=== PATIENT | female | born 1990 | race Caucasian/White ===

== ENCOUNTER 2016-08-05 04:27 | Outpatient (CLI) | payer OTHER, MEDICAID ==
[~2016-08-05] VITALS: Ht 160 cm; Wt 80.3 kg
[~2016-08-05 04:27] MED LIST: CIPRO 500MG TA500 MG PO; IRON TABLETS325 MG PO; KEFLEX 500MG.500 MG PO; PRENATAL VITAM1 EAC2 PO; RANITIDINE HCL150 MG PO
[2016-08-05 04:40] VITALS: BP 142/85
[2016-08-05] MEDS ORDERED: ROBITUSSIN10 ML/UDC PO (04:49)
[2016-08-05 04:57] LABS: URINE BILIRUBIN - DIPSTICK NEGATIVE (NEG); URINE BLOOD NEGATIVE (NEG)
== END 2016-08-05 05:51 | disposition home or self-care (01) ==
LOC: OB 04:27 → OBOUT 04:27 → OB 04:30 → OBOUT 05:51
PROVIDERS: Obstetrics & Gynecology
DX: O21.9 Vomiting of pregnancy, unspecified (principal); Z3A.38 38 weeks gestation of pregnancy; R05 Cough

== ENCOUNTER 2016-08-07 09:33 | Inpatient (IN) | payer OTHER, MEDICAID ==
[~2016-08-07] VITALS: Ht 160 cm; Wt 77.1 kg
[~2016-08-07 09:33] MED LIST changes: +ROBITUSSIN10 ML/UDC PO
--- NOTE | 2016-08-07 10:11 | LABOR NOTE ---
Laboring Subjective Subjective Date 08/07/16 Time 1009 Subjective: Pt is having regular contractions Laboring Objective Objective NST: Reactive Contractions: q 2-3 minutes Cervical dilation: 4-5 Effacement: 90% Station: -1 Membranes are: Spontaneously Ruptured (with clear fluid) Fetus monitoring? Yes Type: External Laboring Assessment Assessment Progressing? Yes Cephalopelvic disproportion? No Problem List: 1. Delivery normal Laboring Plan Plan Anethesia for epidural? Yes Continue to labor down? Yes Plan for ? No Continue to monitor? Yes Start pushing? No at 1010
[2016-08-07 10:12] VITALS: BP 146/84
[2016-08-07] MEDS ORDERED: TYLENOL WITH CO1 TA1 PO (10:15)
[2016-08-07 10:26] LABS: HEMOGLOBIN 11.5 g/dL (12.2-16.2); LYMPH # 2.2 K/mm3 (0.7-4.5); LYMPH % 14.4 % (10-50.0)
[2016-08-07 10:49] LABS: NEUTROPHILS 76 % (42-76)
[2016-08-07 11:20] LABS: ABO BLOOD TYPE O; RH BLOOD TYPE POSITIVE
[2016-08-07 12:01] LABS: URINE BLOOD 3+ (NEG)
[2016-08-07 12:10] LABS: URINE BILIRUBIN - DIPSTICK NEGATIVE (NEG)
[2016-08-07 12:13] LABS: URINE RENAL CELLS OCC #/HPF
--- NOTE | 2016-08-07 13:38 | LABOR NOTE ---
Laboring Subjective Subjective Date 08/07/16 Time 1337 Subjective: Pt is having regular contractions Laboring Objective Objective NST: Reactive Contractions: q 2-3 minutes Cervical dilation: 9 Effacement: 100% Station: 0 Membranes are: Spontaneously Ruptured Fetus monitoring? Yes Type: Internal Comment: CLIP AND IUPC INSERTED Laboring Assessment Assessment Progressing? Yes Cephalopelvic disproportion? No Problem List: 1. Delivery normal Laboring Plan Plan Anethesia for epidural? Yes Continue to labor down? Yes Plan for ? No Continue to monitor? Yes Start pushing? No at 1339
--- NOTE | 2016-08-07 15:40 | Delivery Note ---
Delivery note Delivery date: 08/07/16 Delivery time: 1523 Anesthesia: Epidural, Lavon Butterfield Was labor medically induced? No Gestational age in weeks: 39 weeks Days: 1 day Delivery prior to 39 weeks? No Sex: male score at one minute: 8 at 5 minutes: 9 Type of suction: bulb (clear fluid) AF: Clear fluid LAC or MLE: LAC (none) Delivery procedure: Normal Delivery Delivery of placenta: spontaneous Clinical note She is a 26-year-old 2 para 1 who is 39 and 1 weeks gestational age. She came in in active labor with ruptured membranes. She was found to be 4-5 cm dilated. Under labor epidural she progressed to full dilation and delivered spontaneously a liveborn male child at 3:23 PM in the afternoon of August 07, 2015. The baby was a liveborn male child with Apgars of 8 at 1 minute and 9 at 5 minutes. On delivery the head it was noted that there was a tight nuchal cord. This was doubly clamped and cut. The anterior shoulder and the rest of the 's body then delivered atraumatically. The nasopharynx and oropharynx were bulb suctioned. The baby cried spontaneously. The baby was then placed on the mother' s abdomen for further care. The nurses assigned Apgars of 8 at 1 minute and 9 at 5 minutes. We then obtained cord blood as well as cord pH. PH is currently pending. Using gentle traction on the cord and countertraction on the fundus I was able to easily deliver the placenta intact. It had a normal three-vessel cord. There were no perineal or vaginal lacerations. She has O positive blood, she is rubella immune and was group B streptococcus negative. She plans to breast-feed. Her professor of industrial technology is Dr. Patiño. Estimated blood loss was approximately 400 mL. at 1964
[2016-08-08 07:16] LABS: HEMOGLOBIN 10.4 g/dL (12.2-16.2)
[2016-08-08 08:00] VITALS: BP 123/70
--- NOTE | 2016-08-08 08:25 | ACUTE CARE PROGRESS NOTE (QUA) ---
Progress Notes Subjective Date 08/08/16 Time 0824 Note She is doing very well this morning. She is eating and drinking and ambulating. She is bottlefeeding. Her lochia is normal. She denies any pain. Patient/family reports: feeling better, no complaints Objective Findings Last VS-Temp:98.2 B/P:123/70 Pulse:82 Resp:18 SaO2: Last weight lbs:170 oz:0 K.112 Method:Stated Laboratory Tests 08/08/16 0625: Hgb 10.4 L, Hct 29.2 L 08/07/16 1530: Cord Blood pH 7.31 L 08/07/16 1130: Urine Color DK YELLOW, Urine Appearance CLOUDY, Urine pH 7.0, Ur Specific [place] 1.015, Urine Protein 1+ H, Urine Ketones NEGATIVE, Urine Blood 3+ H, Urine Nitrate NEGATIVE, Urine Bilirubin NEGATIVE, Urine Urobilinogen 4.0, Ur Leukocyte Esterase NEGATIVE, Urine RBC 10-20, Urine WBC 10-20, Urine Renal Cells OCC, Amorphous Sediment 1+, Urine Bacteria 3+, WBC Casts OCC, Urine Glucose NEGATIVE 08/07/16 1000: MCH 33.1 H 08/07/16 1000: WBC 15.5 H, RBC 3.46 L, Hgb 11.5 L, Hct 31.2 L, MCV 90.1, RDW 14.3, Plt Count 220, MPV 10.0, Gran % 79.7, Gran # 12.3 H, Total Counted 100, Lymphocytes % 14.4, Monocytes % 3.3, Eosinophils % 2.4, Basophils % 0.3, Neutrophils 76, Lymphocytes (Manual) 16, Lymphocytes # 2.2, Monocytes (Manual) 6, Monocytes # 0.5, Eosinophils # 0.4, Eosinophils # (Manual) 2, Basophils # 0.1, Differential Comment FEW LARGE PLATELETS NOTED, Platelet Estimate NORMAL, Yong Cells 1+, PUBS MCHC 36.7 H, Antibody Screen NEGATIVE, Miscellaneous Test POSITIVE 08/07/16 0945: Membrane Rupture POSITIVE- RUPTURED Microbiology 08/07 1130 URINE,FO: Urine Culture - RES Exam General appearance: normal appearance, alert, awake, no acute distress Reviewed: vital signs, lab results Assessment/Plan Problem List 1. Delivery normal Patient condition Improving, Stable Plan: continue current care This inpt stay is expected to cross 2 MNs from start of care Yes Comments: She is doing very well and we will plan to send her home tomorrow. at 1909
[2016-08-08 19:50] VITALS: BP 136/92
--- NOTE | 2016-08-09 07:44 | ACUTE CARE PROGRESS NOTE (QUA) ---
Progress Notes Subjective Date 08/09/16 Time 0742 Note She continues to do very well. She is eating and drinking and ambulating. She is bottlefeeding. Her lochia is normal. Patient/family reports: feeling better, no complaints Objective Findings Last VS-Temp:98.3 B/P:136/92 Pulse:83 Resp:18 SaO2: Last weight lbs:170 oz:0 K.112 Method:Stated Exam General appearance: normal appearance, alert, awake, no acute distress Reviewed: vital signs, lab results Assessment/Plan Problem List 1. Delivery normal Patient condition Improving, Stable Plan: continue current care, initiate discharge plan This inpt stay is expected to cross 2 MNs from start of care Yes Comments: She is doing very well this morning we'll plan to send her home. at 0743
[2016-08-09] MEDS ORDERED: MOTRIN 400MG.400 MG PO (07:47)
--- NOTE | 2016-08-09 07:47 | Discharge Summary ---
Discharge Summary Admission date: 08/07/16 Discharge date: 08/09/16 Discharge diagnoses: Term , spontaneous vaginal delivery Clinical note: She is a 26-year-old 2 now para 2 who was 39 weeks gestational age. She came in in active labor and was found be 4-5 cm dilated. As result of that she was admitted for delivery. Course in hospital: She had ruptured her membranes at home and under labor epidural progressed to full dilation. She delivered spontaneously a liveborn male child at 3:23 PM in the afternoon of August 07, 2016. The baby weighed 6 lbs. 12 oz. and was 19-1/2 inches long. He had Apgars of 8 at 1 minute and 9 at 5 minutes. There were no vaginal lacerations. She has done well and has remained afebrile throughout her hospitalization. She is eating and drinking and ambulating. She is bottlefeeding. Her hog cooler is Dr. Patiño. She has O positive blood, she is rubella immune and was group B streptococcus negative. Laboratory Tests 08/08/16 0625: Hgb 10.4 L, Hct 29.2 L 08/07/16 1530: Cord Blood pH 7.31 L 08/07/16 1130: Urine Color DK YELLOW, Urine Appearance CLOUDY, Urine pH 7.0, Ur Specific [place] 1.015, Urine Protein 1+ H, Urine Ketones NEGATIVE, Urine Blood 3+ H, Urine Nitrate NEGATIVE, Urine Bilirubin NEGATIVE, Urine Urobilinogen 4.0, Ur Leukocyte Esterase NEGATIVE, Urine RBC 10-20, Urine WBC 10-20, Urine Renal Cells OCC, Amorphous Sediment 1+, Urine Bacteria 3+, WBC Casts OCC, Urine Glucose NEGATIVE 08/07/16 1000: MCH 33.1 H 08/07/16 1000: WBC 15.5 H, RBC 3.46 L, Hgb 11.5 L, Hct 31.2 L, MCV 90.1, RDW 14.3, Plt Count 220, MPV 10.0, Gran % 79.7, Gran # 12.3 H, Total Counted 100, Lymphocytes % 14.4, Monocytes % 3.3, Eosinophils % 2.4, Basophils % 0.3, Neutrophils 76, Lymphocytes (Manual) 16, Lymphocytes # 2.2, Monocytes (Manual) 6, Monocytes # 0.5, Eosinophils # 0.4, Eosinophils # (Manual) 2, Basophils # 0.1, Differential Comment FEW LARGE PLATELETS NOTED, Platelet Estimate NORMAL, Yong Cells 1+, PUBS MCHC 36.7 H, Antibody Screen NEGATIVE, Miscellaneous Test POSITIVE 08/07/16 0945: Membrane Rupture POSITIVE- RUPTURED Microbiology Date/Time Procedure - Status Source Growth 08/07 1130 Urine Culture - COMP URINE,FO Plans for ongoing care: She is discharged home to follow-up with me in approximately 2 weeks' time. Discharge medications She will continue with her vitamins and iron. She was given a pressure for for Percocet 5/325, 30 tablets as well as Motrin 400 mg, 40 tablets DC/follow-up instructions She was given the usual instructions with respect to limiting her activity, driving and sexual activity. Condition at discharge Stable and improved at 0746
[2016-08-09] MEDS ORDERED: PERCOCET 5/3251 EACH PO (07:48)
[2016-08-09] MEDS ORDERED: NICOTINE T21 MG/24 H TD (07:48)
[2016-08-09 08:39] VITALS: BP 131/98
== END 2016-08-09 13:00 | disposition home or self-care (01) | DRG 775 ==
LOC: OBOUT 09:33 → OB 09:34 → OBOUT 11:36 → OB 11:38
PROVIDERS: Nurse Practitioner Obstetrics & Gynecology
PROC: 10E0XZZ Delivery of Products of Conception, External Approach (ICD-10-PCS; principal; 2016-08-07)
DX: O69.81X0 Labor and delivery complicated by cord around neck, without compression, not applicable or unspecified (principal); Z37.0 Single live birth; Z3A.39 39 weeks gestation of pregnancy
CPT/HCPCS: C1758; J0595

== ENCOUNTER 2016-08-10 19:10 | Inpatient (IN) | payer OTHER, MEDICAID ==
[~2016-08-10] VITALS: Ht 160 cm; Wt 72.6 kg
[2016-08-10 00:22] VITALS: BP 146/96
[~2016-08-10 19:10] MED LIST changes: +MOTRIN 400MG.400 MG PO; +NICOTINE T21 MG/24 H TD; +PERCOCET 5/3251 EACH PO; +TYLENOL WITH CO1 TA1 PO
[2016-08-10 19:15] VITALS: BP 160/108
[2016-08-10 19:30] LABS: LYMPH # 2.5 K/mm3 (0.7-4.5); LYMPH % 21.3 % (10-50.0)
[2016-08-10 19:36] LABS: URINE BILIRUBIN - DIPSTICK NEGATIVE (NEG); URINE BLOOD 3+ (NEG)
[2016-08-10 19:37] LABS: HEMOGLOBIN 10.4 g/dL (12.2-16.2)
--- NOTE | 2016-08-10 19:44 | Emergency Room Report ---
See Addendum History of Present Illness Time Seen by 1925 Presenting Problem in Triage Pt arrived:Walked Presenting Problem:PT STATES THAT HER B/P WAS HIGH. PT STATES THAT SHE HAD A VAGINAL DELIVERY 3 DAYS AGO. 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 N Clinical Suspician of Infection? N Mental Status: 1 - Regular (Normal Baseline) Sepsis Risk:Low Sepsis Risk Have you (or family members/close friends) recently traveled outside the [place]? N If Yes, where/when: Have you had exposure to infectious disease within the past month? N TB? Other? Specify: Patient took BP at home and noted it to be high; has no headache or visual changes today; s/p three days ago with no BP issues during ; states recently has been taking cough syrup with decongestant, last dose yesterday; drank two Mountain Dew drinks today, but drinks caffeine daily. No hx HTN. ALLERGIES Coded Allergies: No Known Drug Intolerances (NA 08/10/16) Home Medications Active Scripts Ibuprofen (MOTRIN 400MG) 400 MG PO Q8HP PRN MILD PAIN, FEVER OR HEADACHE #40 TAB Prov: 08/09/16 Oxycodone 5MG/[id number] (Oxycodone-Acetaminophen 5-325) 1-2 TAB PO Q4HP PRN MODERATE TO SEVERE PAIN #30 TAB Prov: 08/09/16 Reported Medications Ranitidine Hcl (Ranitidine 150MG) 150 MG PO BID Discontinued Reported Medications ACETAMINOPHEN WITH CODEINE (Tylenol With Codeine #3 Tablet) 1 TAB PO Q4HP PRN PAIN History Medical History General Angina: No [place]: No Hypertension? No Hyperlipidemia? No CHF? No COPD? No Asthma? No CVA? No Seizures? No Diabetes? No GB Disease: No MRSA? No TB? No Cancer? 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 Psychiatric/Neurological see HPI, denies headache Physical Exam Vital Signs Vital Signs Date Time Temp Pulse Resp B/P Pulse O2 O2 Flow FiO2 Ox Delivery Rate 08/10 1953 87 18 176/112 98 08/10 1914 98.9 92 18 160/108 96 General Appearance normal appearance, WD/WN, no apparent distress (SBP in 170's on recheck) Eye Exam - bilateral eye normal exam, bilateral eye PERRL, bilateral eye EOMI Neck normal inspection, non-tender, supple, full range of motion Respiratory Status Yes: trachea midline, chest symmetrical, non tender chest. No: respiratory distress, tender on palpation, use of accessory muscles, pain on inspiration, pain on expiration, productive cough, non productive cough. Lung Sounds bilateral: normal breath sounds, lungs clear. 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 No Results/Orders Laboratory Tests 08/10/161924: Urine Color YELLOW, Urine Appearance CLEAR, Urine pH 7.0, Ur Specific [place] 1.010, Urine Protein TRACE H, Urine Ketones NEGATIVE, Urine Blood 3+ H, Urine Nitrate NEGATIVE, Urine Bilirubin NEGATIVE, Urine Urobilinogen 0.2, Ur Leukocyte Esterase 2+ H, Urine RBC 5-10, Urine WBC 3-5, Ur Squamous Epith Cells 5-10, Amorphous Sediment 1+, Urine Bacteria 2+, Urine Glucose NEGATIVE 08/10/161919: Lactate Dehydrogenase 272 H 08/10/161919: Sodium 141, Potassium 3.3 L, Chloride 107, Carbon Dioxide 25, BUN 5 L, Creatinine 0.7, Estimated Creat Clear 142, Estimated GFR (MDRD) 103, Glucose 101 , Calcium 8.4 L, Total Bilirubin 0.2, AST 32, ALT 23, Alkaline Phosphatase 217 H, Total Protein 5.7 L, Albumin 2.3 L, Globulin 3.4 H, Albumin/Globulin Ratio 0.7 L, PT 9.7, INR 0.91, APTT 28.6, WBC 11.6 H, RBC 3.28 L, Hgb 10.4 L, Hct 29.9 L, MCV 91.0, RDW 13.7, Plt Count 316, MPV 10.1, Gran % 71.8, Gran # 8.4 H , Lymphocytes % 21.3, Monocytes % 3.0, Eosinophils % 3.5, Basophils % 0.3, Lymphocytes # 2.5, Monocytes # 0.4, Eosinophils # 0.4, Basophils # 0.0, PUBS MCHC 34.8, MCH 31.7 H Current Medication Orders Sig/Shari Start time Last Medication Dose Route Stop Time Status Admin Magnesium Sulfate 50 ML ONCE ONE 08/10 2014 AC IV 08/10 2213 Clonidine HCl 0 .STK-MED ONE 08/10 1948 DC .ROUTE Clonidine HCl 0.1 MG ONCE ONE 08/10 1944 DC 08/10 PO 08/10 1945 1950 Sodium Chloride 10 ML PRN PRN 08/10 1929 AC IV 08/11 1920 Orders Procedure Date/time Status Decision to admit 08/10 2001 Active IV SALINE LOCK 08/10 1929 Active PARTIAL THROMBOPLASTIN TIME 08/10 1929 Complete PROTHROMBIN TIME 08/10 1929 Complete LDH 08/10 1929 Complete CULTURE, URINE 08/10 1924 Active IV SALINE LOCK 08/10 1920 Active URINALYSIS/COMPLETE 08/10 1920 Complete CBC WITH AUTO DIFF 08/10 1920 Complete CHEM 12 PROFILE 08/10 1920 Complete Consult MD Physician Consult Time Called 2002 Reason Pt. Condition, Admission Departure Departure Time of Disposition 2002 Disposition Still a Patient Clinical Impression Primary Impression: Hypertension, condition or complication Condition STABLE Referrals Kate Roberts APRN (Family) ED Critical Care Critical Care Yes Time spent < 30 min Vital system(s) involved: Circulatory Failure (elevated BP post ) I was present at bedside for Coordinating pt's care, Reviewing lab results, Discussing pt condition, For re-examinations (d/w patient and family) at 2004
--- NOTE | 2016-08-10 19:44 | Emergency Room Report ---
See Addendum History of Present Illness Time Seen by 1925 Presenting Problem in Triage Pt arrived:Walked Presenting Problem:PT STATES THAT HER B/P WAS HIGH. PT STATES THAT SHE HAD A VAGINAL DELIVERY 3 DAYS AGO. 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 N Clinical Suspician of Infection? N Mental Status: 1 - Regular (Normal Baseline) Sepsis Risk:Low Sepsis Risk Have you (or family members/close friends) recently traveled outside the [place]? N If Yes, where/when: Have you had exposure to infectious disease within the past month? N TB? Other? Specify: Patient took BP at home and noted it to be high; has no headache or visual changes today; s/p three days ago with no BP issues during ; states recently has been taking cough syrup with decongestant, last dose yesterday; drank two Mountain Dew drinks today, but drinks caffeine daily. No hx HTN. ALLERGIES Coded Allergies: No Known Drug Intolerances (NA 08/10/16) Home Medications Active Scripts Ibuprofen (MOTRIN 400MG) 400 MG PO Q8HP PRN MILD PAIN, FEVER OR HEADACHE #40 TAB Prov: 08/09/16 Oxycodone 5MG/[id number] (Oxycodone-Acetaminophen 5-325) 1-2 TAB PO Q4HP PRN MODERATE TO SEVERE PAIN #30 TAB Prov: 08/09/16 Reported Medications Ranitidine Hcl (Ranitidine 150MG) 150 MG PO BID Discontinued Reported Medications ACETAMINOPHEN WITH CODEINE (Tylenol With Codeine #3 Tablet) 1 TAB PO Q4HP PRN PAIN History Medical History General Angina: No [place]: No Hypertension? No Hyperlipidemia? No CHF? No COPD? No Asthma? No CVA? No Seizures? No Diabetes? No GB Disease: No MRSA? No TB? No Cancer? 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 Psychiatric/Neurological see HPI, denies headache Physical Exam Vital Signs Vital Signs Date Time Temp Pulse Resp B/P Pulse O2 O2 Flow FiO2 Ox Delivery Rate 08/10 1953 87 18 176/112 98 08/10 1914 98.9 92 18 160/108 96 General Appearance normal appearance, WD/WN, no apparent distress (SBP in 170's on recheck) Eye Exam - bilateral eye normal exam, bilateral eye PERRL, bilateral eye EOMI Neck normal inspection, non-tender, supple, full range of motion Respiratory Status Yes: trachea midline, chest symmetrical, non tender chest. No: respiratory distress, tender on palpation, use of accessory muscles, pain on inspiration, pain on expiration, productive cough, non productive cough. Lung Sounds bilateral: normal breath sounds, lungs clear. 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 No Results/Orders Laboratory Tests 08/10/161924: Urine Color YELLOW, Urine Appearance CLEAR, Urine pH 7.0, Ur Specific [place] 1.010, Urine Protein TRACE H, Urine Ketones NEGATIVE, Urine Blood 3+ H, Urine Nitrate NEGATIVE, Urine Bilirubin NEGATIVE, Urine Urobilinogen 0.2, Ur Leukocyte Esterase 2+ H, Urine RBC 5-10, Urine WBC 3-5, Ur Squamous Epith Cells 5-10, Amorphous Sediment 1+, Urine Bacteria 2+, Urine Glucose NEGATIVE 08/10/161919: Lactate Dehydrogenase 272 H 08/10/161919: Sodium 141, Potassium 3.3 L, Chloride 107, Carbon Dioxide 25, BUN 5 L, Creatinine 0.7, Estimated Creat Clear 142, Estimated GFR (MDRD) 103, Glucose 101 , Calcium 8.4 L, Total Bilirubin 0.2, AST 32, ALT 23, Alkaline Phosphatase 217 H, Total Protein 5.7 L, Albumin 2.3 L, Globulin 3.4 H, Albumin/Globulin Ratio 0.7 L, PT 9.7, INR 0.91, APTT 28.6, WBC 11.6 H, RBC 3.28 L, Hgb 10.4 L, Hct 29.9 L, MCV 91.0, RDW 13.7, Plt Count 316, MPV 10.1, Gran % 71.8, Gran # 8.4 H , Lymphocytes % 21.3, Monocytes % 3.0, Eosinophils % 3.5, Basophils % 0.3, Lymphocytes # 2.5, Monocytes # 0.4, Eosinophils # 0.4, Basophils # 0.0, PUBS MCHC 34.8, MCH 31.7 H Current Medication Orders Sig/Shari Start time Last Medication Dose Route Stop Time Status Admin Magnesium Sulfate 50 ML ONCE ONE 08/10 2014 AC IV 08/10 2213 Clonidine HCl 0 .STK-MED ONE 08/10 1948 DC .ROUTE Clonidine HCl 0.1 MG ONCE ONE 08/10 1944 DC 08/10 PO 08/10 1945 1950 Sodium Chloride 10 ML PRN PRN 08/10 1929 AC IV 08/11 1920 Orders Procedure Date/time Status Decision to admit 08/10 2001 Active IV SALINE LOCK 08/10 1929 Active PARTIAL THROMBOPLASTIN TIME 08/10 1929 Complete PROTHROMBIN TIME 08/10 1929 Complete LDH 08/10 1929 Complete CULTURE, URINE 08/10 1924 Active IV SALINE LOCK 08/10 1920 Active URINALYSIS/COMPLETE 08/10 1920 Complete CBC WITH AUTO DIFF 08/10 1920 Complete CHEM 12 PROFILE 08/10 1920 Complete Consult MD Physician Consult Time Called 2002 Reason Pt. Condition, Admission Departure Departure Time of Disposition 2002 Disposition Still a Patient Clinical Impression Primary Impression: Hypertension, condition or complication Condition STABLE Referrals Kate Roberts APRN (Family) ED Critical Care Critical Care Yes Time spent < 30 min Vital system(s) involved: Circulatory Failure (elevated BP post ) I was present at bedside for Coordinating pt's care, Reviewing lab results, Discussing pt condition, For re-examinations (d/w patient and family) at 2004
[2016-08-10 20:50] VITALS: BP 149/99
[2016-08-10 22:05] VITALS: BP 146/91
[2016-08-10 22:06] LABS: HEMOGLOBIN 9.9 g/dL (12.2-16.2); LYMPH # 2.4 K/mm3 (0.7-4.5); LYMPH % 20.9 % (10-50.0)
[2016-08-10 22:20] VITALS: BP 141/89
[2016-08-10 22:51] LABS: ABO BLOOD TYPE O; RH BLOOD TYPE POSITIVE
[2016-08-10 23:22] VITALS: BP 132/83
[2016-08-11] VITALS (21 sets, daily range): BP systolic 102–171; BP diastolic 64–104
--- NOTE | 2016-08-11 10:19 | ACUTE CARE PROGRESS NOTE (QUA) ---
Progress Notes Subjective Date 08/11/16 Time 1018 Note She is doing better this morning. She denies any headache or scotomata or epigastric pain. She has normalized her blood pressure on the magnesium sulfate. Patient/family reports: feeling better, no complaints Objective Findings Last VS-Temp:97.8 B/P:135/95 Pulse:86 Resp:18 SaO2:100 ROOM AIR Last weight lbs:160 oz:0 K.576 Method:Stated Exam General appearance: normal appearance, alert, awake, no acute distress Reviewed: vital signs, lab results Assessment/Plan Problem List 1. Hypertension, condition or complication Patient condition Improving, Stable Plan: continue current care This inpt stay is expected to cross 2 MNs from start of care Yes Comments: She is doing well this morning. We'll continue with her magnesium sulfate until she has had it for 24 hours. We will start labetalol 100 mg twice a day today. at 1019
[2016-08-12 00:30] VITALS: BP 146/87
[2016-08-12 03:45] VITALS: BP 132/90
[2016-08-12 08:40] VITALS: BP 158/92
[2016-08-12 09:12] VITALS: BP 145/90
--- NOTE | 2016-08-12 09:31 | ACUTE CARE PROGRESS NOTE (QUA) ---
Progress Notes Subjective Date 08/12/16 Time 0928 Note She is doing a little better this morning. Her blood pressure is still slightly elevated at times in the 150/90 range. She denies any headache or scotomata or epigastric pain. We stopped her magnesium sulfate last night. She is taking labetalol 100 mg twice a day. We are planning to increase the dosage to 200 mg twice a day. We will plan to send her home later this morning. Patient/family reports: feeling better, no complaints Objective Findings Last VS-Temp:98.2 B/P:158/92 Pulse:83 Resp:18 SaO2:97 ROOM AIR Last weight lbs:160 oz:0 K.576 Method:Stated Exam General appearance: normal appearance, alert, active, awake, no acute distress Reviewed: vital signs, lab results Assessment/Plan Problem List 1. Hypertension, condition or complication Patient condition Improving, Stable Plan: continue current care, initiate discharge plan This inpt stay is expected to cross 2 MNs from start of care Yes Comments: She seems to be doing better on her labetalol. She is now off the magnesium sulfate. We will increase the dosage of labetalol to 200 mg twice a day. We will plan to send her home today. I'll follow up with her later in the week. at 0930
[2016-08-12] MEDS ORDERED: LABETALOL HCL200 MG PO (09:35)
--- NOTE | 2016-08-12 09:35 | Discharge Summary ---
Discharge Summary Admission date: 08/10/16 Discharge date: 08/12/16 Discharge diagnoses: preeclampsia Clinical note: She is a 26-year-old 2 para 2 lady who was just a few days . She was taking her blood pressure at home and it was found be significantly elevated in the 170/100 range. She came to the ER and this was indeed the case. As result of that she was admitted for magnesium sulfate and blood pressure control. Course in hospital: She was started on IV magnesium sulfate with an initial bolus of 4 g followed by 2 g an hour for the next 24 hours. She was also started on labetalol 100 mg twice a day. Her blood pressure has stabilized but we have increase the dosage of labetalol to 200 mg twice a day. She initially had a headache and this seems to have settled. She is bottlefeeding. Laboratory Tests 08/11/16 0630: Magnesium 5.6 H 08/10/16 2145: MCH 32.5 H 08/10/16 2145: Sodium 140, Potassium 3.1 L, Chloride 107, Carbon Dioxide 26, BUN 6 L, Creatinine 0.7, Estimated Creat Clear 142, Estimated GFR (MDRD) 103, Glucose 95, Uric Acid 4.5, Calcium 8.1 L, Magnesium 3.5 H, AST 28, ALT 24, PT 9.7, INR 0.91, APTT 29.2, Fibrinogen 336.0, D-Dimer 1420 *H, WBC 11.3 H, RBC 3.03 L, Hgb 9.9 L, Hct 28.2 L, MCV 93.0, RDW 14.1, Plt Count 309, MPV 9.4, Gran % 72.6 , Gran # 8.2 H, Lymphocytes % 20.9, Monocytes % 3.0, Eosinophils % 3.3, Basophils % 0.3, Lymphocytes # 2.4, Monocytes # 0.3, Eosinophils # 0.4, Basophils # 0.0, PUBS MCHC 35.0, Antibody Screen NEGATIVE, Miscellaneous Test POSITIVE 08/10/161924: Urine Color YELLOW, Urine Appearance CLEAR, Urine pH 7.0, Ur Specific Gardiner 1.010, Urine Protein TRACE H, Urine Ketones NEGATIVE, Urine Blood 3+ H, Urine Nitrate NEGATIVE, Urine Bilirubin NEGATIVE, Urine Urobilinogen 0.2, Ur Leukocyte Esterase 2+ H, Urine RBC 5-10, Urine WBC 3-5, Ur Squamous Epith Cells 5-10, Amorphous Sediment 1+, Urine Bacteria 2+, Urine Glucose NEGATIVE 08/10/161919: Lactate Dehydrogenase 272 H 08/10/161919: Sodium 141, Potassium 3.3 L, Chloride 107, Carbon Dioxide 25, BUN 5 L, Creatinine 0.7, Estimated Creat Clear 142, Estimated GFR (MDRD) 103, Glucose 101 , Calcium 8.4 L, Total Bilirubin 0.2, AST 32, ALT 23, Alkaline Phosphatase 217 H, Total Protein 5.7 L, Albumin 2.3 L, Globulin 3.4 H, Albumin/Globulin Ratio 0.7 L, PT 9.7, INR 0.91, APTT 28.6, WBC 11.6 H, RBC 3.28 L, Hgb 10.4 L, Hct 29.9 L, MCV 91.0, RDW 13.7, Plt Count 316, MPV 10.1, Gran % 71.8, Gran # 8.4 H , Lymphocytes % 21.3, Monocytes % 3.0, Eosinophils % 3.5, Basophils % 0.3, Lymphocytes # 2.5, Monocytes # 0.4, Eosinophils # 0.4, Basophils # 0.0, PUBS MCHC 34.8, MCH 31.7 H Microbiology Date/Time Procedure - Status Source Growth 08/10 1924 Urine Culture - COMP RANDOM Plans for ongoing care: She is discharged home to follow-up with me in approximately 1 week's time. She will continue with her labetalol. Milligrams twice a day. Discharge medications She'll continue with her vitamins and iron. She was given a prescription after her delivery for ibuprofen as well as an occasional Percocet. DC/follow-up instructions She was given the usual instructions with respect to limiting her activity, driving and sexual activity. Condition at discharge Stable and improved at 0934
[2016-08-12 09:42] VITALS: BP 130/85
[2016-08-12 10:12] VITALS: BP 122/76
== END 2016-08-12 11:44 | disposition home or self-care (01) | DRG 776 ==
LOC: ER 19:10 → OB 20:09
PROVIDERS: Emergency Medicine; Nurse Practitioner Obstetrics & Gynecology
DX: O13.5 Gestational [pregnancy-induced] hypertension without significant proteinuria, complicating the puerperium (principal); O14.95 Unspecified pre-eclampsia, complicating the puerperium

== ENCOUNTER 2016-08-14 15:36 | Inpatient (IN) | payer OTHER, MEDICAID ==
[2016-08-14] VITALS (19 sets, daily range): BP systolic 124–158; BP diastolic 67–113
[~2016-08-14] VITALS: Ht 160 cm; Wt 67.6 kg
[~2016-08-14 15:36] MED LIST changes: +LABETALOL HCL200 MG PO
[2016-08-14 16:50] LABS: LYMPH # 2.4 K/mm3 (0.7-4.5); LYMPH % 20.5 % (10-50.0)
[2016-08-14 17:25] LABS: ABO BLOOD TYPE O; RH BLOOD TYPE POSITIVE
[2016-08-15] VITALS (32 sets, daily range): BP systolic 122–159; BP diastolic 66–104
--- NOTE | 2016-08-15 07:42 | ACUTE CARE PROGRESS NOTE (QUA) ---
Progress Notes Subjective Date 08/15/16 Time 0739 Note She seems to be doing a little better this morning. Her blood pressure has stabilized. It's in the 140/80 range. She denies any headache, scotomata or epigastric pain. Her blood work was all normal yesterday. She has been taking labetalol 200 mg 3 times a day. She has been on magnesium sulfate 2 g an hour. Patient/family reports: feeling better, no complaints Objective Findings Last VS-Temp:97.9 B/P:142/89 Pulse:83 Resp:18 SaO2:96 ROOM AIR Last weight lbs:165 oz:0 [id number] Method: Laboratory Tests 08/15/16 0630: Magnesium 6.3 H 08/14/16 1630: PT 10.3, INR 0.96, APTT 28.2, Fibrinogen 329.1, D-Dimer 931 *H 08/14/16 1610: Magnesium 1.8, MCH 31.9 H 08/14/16 1610: Sodium 143, Potassium 3.6, Chloride 106, Carbon Dioxide 26, BUN 10, Creatinine 0.6, Estimated Creat Clear 171, Estimated GFR (MDRD) 123, Glucose 85, Uric Acid 5.9, Calcium 8.5, AST 23, ALT 27, WBC 11.9 H, RBC 3.43 L, Hgb 11.0 L, Hct 31.4 L, MCV 91.6, RDW 13.6, Plt Count 455 H, MPV 9.1, Gran % 72.9, Gran # 8.7 H, Lymphocytes % 20.5, Monocytes % 3.8, Eosinophils % 2.5, Basophils % 0.3, Lymphocytes # 2.4, Monocytes # 0.5, Eosinophils # 0.3, Basophils # 0.0, PUBS MCHC 34.9, Antibody Screen NEGATIVE, Miscellaneous Test POSITIVE Exam General appearance: normal appearance, alert, awake, no acute distress Reviewed: vital signs, lab results Assessment/Plan Problem List 1. Hypertension, condition or complication Patient condition Improving, Stable Plan: continue current care This inpt stay is expected to cross 2 MNs from start of care Yes Comments: She is doing well today. We will stop her magnesium sulfate. He has been on this for more than 12 hours. We will continue with the labetalol 200 mg 3 times a day. If she is doing well tomorrow we will make consider sending her home. Her laboratory investigations revealed a slightly elevated uric acid at 5.9. The rest of her tests were normal. at 1803
--- NOTE | 2016-08-15 10:22 | PHARMACY CLINIC NOTE ---
Patient Demographics Patient Demographics Admission date: 08/14/16 Date: 08/15/16 Time: 1021 Allergies Coded Allergies: No Known Allergies (08/10/16) HEIGHT- FT: 5 IN: 3.00 [id number] VTE General Information Labs: Laboratory Tests 08/14 08/14 1630 1610 Coagulation PT (9.4 - 11.8 SECONDS) 10.3 INR (0.9 - 1.1) 0.96 APTT (23.6 - 34.0 SECONDS) 28.2 Hematology Hgb (12.2 - 16.2 g/dL) 11.0 L Hct (37.0 - 47.0 %) 31.4 L Plt Count (142 - 424 K/mm3) 455 H Disclaimer The following section includes nursing documentation that has been pulled in for pharmacy review. Patient's VTE score: 0 Patient's VTE Risk: VERY LOW RISK Clinical trial participant? No VTE prophylaxis [id number] VTE prophylaxis ordered? Yes Type of prophylaxis/treatment: BETH at 1021
[2016-08-16] VITALS (43 sets, daily range): BP systolic 124–177; BP diastolic 68–111
--- NOTE | 2016-08-16 08:49 | ACUTE CARE PROGRESS NOTE (QUA) ---
Progress Notes Subjective Date 08/16/16 Time 0847 Note She seems to be a little better. She has spikes and her blood pressure still. Occasionally her blood pressures in the 160s over 90s. Her headache has much improved. This morning her blood pressure is 136/86. She denies any headache. Patient/family reports: feeling better, no complaints Objective Findings Last VS-Temp:98.9 B/P:168/80 Pulse:75 Resp:18 SaO2:91 ROOM AIR Last weight lbs:165 oz:0 [id number] Method: Exam General appearance: normal appearance, alert, awake, no acute distress Reviewed: vital signs, lab results Assessment/Plan Problem List 1. Hypertension, condition or complication Patient condition Stable Plan: continue current care This inpt stay is expected to cross 2 MNs from start of care Yes Comments: She continues to take labetalol 200 mg 3 times a day. She will continue with her Norvasc 5 mg daily. If she's doing well tomorrow we will plan to send her home. at 0826
--- NOTE | 2016-08-16 08:49 | ACUTE CARE PROGRESS NOTE (QUA) ---
Progress Notes Subjective Date 08/16/16 Time 0847 Note She seems to be a little better. She has spikes and her blood pressure still. Occasionally her blood pressures in the 160s over 90s. Her headache has much improved. This morning her blood pressure is 136/86. She denies any headache. Patient/family reports: feeling better, no complaints Objective Findings Last VS-Temp:98.9 B/P:168/80 Pulse:75 Resp:18 SaO2:91 ROOM AIR Last weight lbs:165 oz:0 [id number] Method: Exam General appearance: normal appearance, alert, awake, no acute distress Reviewed: vital signs, lab results Assessment/Plan Problem List 1. Hypertension, condition or complication Patient condition Stable Plan: continue current care This inpt stay is expected to cross 2 MNs from start of care Yes Comments: She continues to take labetalol 200 mg 3 times a day. She will continue with her Norvasc 5 mg daily. If she's doing well tomorrow we will plan to send her home. at 0855
[2016-08-17] VITALS (43 sets, daily range): BP systolic 78–176; BP diastolic 43–110
--- NOTE | 2016-08-17 08:39 | ACUTE CARE PROGRESS NOTE (QUA) ---
Progress Notes Subjective Date 08/17/16 Time 0831 Note She continues to have elevated blood pressure. We did give her IV labetalol 20 mg and this seemed to settle her blood pressure but it has gradually creeped up overnight. This morning it has been in the 160s over 90s. Her diastolic is been as high as 106. She has a mild headache. She continues to have rather brisk reflexes. She has received magnesium sulfate twice for 24 hours. Patient/family reports: headache Objective Findings Last VS-Temp:98.0 B/P:156/85 Pulse:67 Resp:18 SaO2:98 ROOM AIR Last weight lbs:165 oz:0 [id number] Method: Exam General appearance: normal appearance, alert, awake, no acute distress Reviewed: vital signs, lab results Assessment/Plan Problem List 1. Hypertension, condition or complication Patient condition Stable Plan: make medication changes This inpt stay is expected to cross 2 MNs from start of care Yes Comments: I have given her 20 mg IV of labetalol this morning. We'll see how she does with this. We will consult Dr. Patiño as well to help manage her hypertension. I will set criteria for the IV labetalol. And she is had magnesium sulfate in the past and this is just a temporary fix have her blood pressure I would rather have her on a medication that she can take at home. at 0838
--- NOTE | 2016-08-17 09:15 | ACUTE CARE PROGRESS NOTE (QUA) ---
Progress Notes Subjective Date 08/17/16 Time 0913 Assessment/Plan Problem List 1. Hypertension, condition or complication This inpt stay is expected to cross 2 MNs from start of care Yes Comments: I spoke with Dr. Coats at [facility] and he suggested that we start nifedipine XL 30 mg daily. If her blood pressure continues to be elevated we can certainly increase the dosage from 30 mg to 60 mg to 90 mg daily. He also said that we should start some Lasix and I've given her 20 mg of Lasix now and she will get it every morning. We have increased the labetalol to 400 mg 3 times a day. We can go up to 800 mg 3 times a day with the labetalol. The other advice he had was to start lisinopril 10 mg daily if she continues to have elevated blood pressure despite using the other medications. I have reassured her -induced hypertension blood work this morning. He also suggested that we start magnesium sulfate only if she has a severe headache. I will be leaving town this morning and Dr. Dewey will take over care of this patient. at 0915
[2016-08-17 09:18] LABS: HEMOGLOBIN 10.7 g/dL (12.2-16.2); LYMPH # 2.4 K/mm3 (0.7-4.5)
[2016-08-17 09:26] LABS: BILIRUBIN, INDIRECT 0.22 mg/dL (0-0.9)
--- NOTE | 2016-08-17 11:05 | RADIOLOGY REPORT PS360 ---
US PELVIS (NO FETUS) ORDERING PHYSICIAN : Kem Foley MD PATIENT AGE: 26 years GENDER: Female INDICATION: PIH 10 days . Persistent severe hypertension. TECHNIQUE: . Transabdominal pelvic ultrasound COMPARISON: ultrasound 03/20/2016 FINDINGS UTERUS.: Transvaginal scanning only. At the more normal-appearing lower uterus endometrial cavity we see homogeneous low-density material which may compatible with some minimal blood or clot or diminishing locha. This is in contrast to the discretely different pattern at the upper portion of the endometrial cavity. Where there is a focus varying and abnormal echogenicity fragment within superior most endometrial cavity, towards the fundus. The overall endometrial stripe measuring up to nearly 1.5 cm AP maximum This area measuring 3.2 cm length x 1.25 cm AP at the fundus which contains stippled echoes throughout suspect for small calcifications & raising concern regarding small retained fragment of placenta..-There is also increased flow into this area which further raises this concern and would tend to speak against merely clot accounting for this appearance. Clot could certainly mimic this appearance as well.. Uterus remains elongated at 17.7 cm length reflecting the recent status. 1.3 cm AP x 6.1 cm AP x 11.4 cm wide cm wide Right ovary. 3.2 cm thousand 1.25 cm x 2.3 cm Left ovary 3.5 cm x 1.7 cm x 2.5 cm. Minimal fluid at the cul-de-sac measures 2.5 cm is 1.6 cm. Imaging right kidney shows no fluid at Morison pouch IMPRESSION: - Abnormal 3.2 x 1.2 cm fragment within the superior most endometrial cavity towards fundus. The appearance is raise concern and suspect potential a small retained retained fragment placenta
--- NOTE | 2016-08-17 11:30 | ACUTE CARE PROGRESS NOTE (QUA) ---
Progress Notes Subjective Date 08/17/16 Time 1127 Note Please refer to previous notes with regard to this patient. Dr. Foley has a signed out to me as he is out of town. The patient understands this and accepts it. Because of multiple antihypertensives, the patient's blood pressure dropped precipitously. She has been treated with intravenous fluids and positioning and her blood pressure currently is 106/59 and she is clinically stable. Ultrasound this morning suggests retained secundines at or near the uterine fundus. Breakdown products from retained products could be contributing to her hypertensive condition. I discussed this with the patient. The plan is to do a dilatation and evacuation sometime today. She understands and accepts the risks and benefits of this procedure. Assessment/Plan Problem List 1. Hypertension, condition or complication This inpt stay is expected to cross 2 MNs from start of care Yes at 1130
--- NOTE | 2016-08-17 13:37 | Operative Note ---
Procedure/Operative Record Date of Procedure: 08/17/16 Referring physician: Dr. Foley Pre-op diagnosis: Retained secundines Post-op diagnosis: Retained secundines Procedure performed: Dilatation and suction evacuation Surgeon: Nino Dewey Anesthesia: AVE Wisdom Indications: Retained secundines Description of procedure: After the patient was prepped and draped in usual fashion and general anesthesia was administered, examination under anesthesia revealed an anteverted boggy uterus, with no adnexal masses. The bladder was straight cathed for 1100 mL of urine. A speculum was placed within the posterior fourchette of the vagina, and the anterior lip of the cervix was grasped with a single-tooth tenaculum. The cervix easily admitted a number 20 Hegar dilator. There was introduced into the endometrial cavity, with retrieval of a large amount of necrotic retained placental tissue (secundines). This was followed by suction with a number 10 curved suction tip, and again by sharp curettage and suction, until it was felt that the cavity was clean. The instruments were then removed. The sponge and needle counts correct. Estimated blood loss was 30 mL. Patient tolerated the procedure well, and was taken to PACU in excellent condition. Intravenous Pitocin was running. EBL (ml): 30 Complications: None Specimens: Retained secundines at 6003
--- NOTE | 2016-08-17 16:43 | ACUTE CARE PROGRESS NOTE (QUA) ---
Progress Notes Subjective Date 08/17/16 Time 1641 Note This is day of surgery. Surgery is been explained to the patient. She is afebrile. Feeling well. No pain. Vaginal bleeding minimal. Her blood pressure is 136/80. At surgery, she had 1100 mL of urine as output. Since then she's had another 1500 mL out. I'm going to DC her Lasix and, depending on her blood pressure prior to her next labetalol dose, I may decrease that dose. I will start her on a regular diet. Assessment/Plan Problem List 1. Hypertension, condition or complication This inpt stay is expected to cross 2 MNs from start of care Yes at 1643
[2016-08-18 05:00] VITALS: BP 159/88
[2016-08-18 08:00] VITALS: BP 146/84
[2016-08-18 08:21] VITALS: BP 146/84
--- NOTE | 2016-08-18 08:43 | ACUTE CARE PROGRESS NOTE (QUA) ---
Progress Notes Subjective Date 08/18/16 Time 0841 Note This is postop day number 1. The patient is afebrile. Her vital signs are stable. Her blood pressure is 144/84. Deep tendon reflexes are normal. Abdomen soft. Minimal bleeding. Impression: Stable. I'm holding all her antihypertensive medications. We'll observe for the next [address] Patiño was going to see the patient is morning but I have told him that that probably is not necessary at this time. He will be available as needed. Assessment/Plan Problem List 1. Hypertension, condition or complication This inpt stay is expected to cross 2 MNs from start of care Yes at 0842
[2016-08-18 12:58] VITALS: BP 157/100
[2016-08-18 16:35] VITALS: BP 161/97
--- NOTE | 2016-08-18 18:42 | ACUTE CARE PROGRESS NOTE (QUA) ---
Progress Notes Subjective Date 08/18/16 Time 1841 Note Patient is doing well. Her blood pressure creeps up earlier and so I increased her labetalol to 200 mg by mouth 3 times a day. Her current blood pressure is 147/76. DTRs are normal. Impression: Stable. Assessment/Plan Problem List 1. Hypertension, condition or complication This inpt stay is expected to cross 2 MNs from start of care Yes at 1842
[2016-08-18 20:26] VITALS: BP 163/100
[2016-08-19] VITALS (8 sets, daily range): BP systolic 135–188; BP diastolic 76–109
--- NOTE | 2016-08-19 08:52 | ACUTE CARE PROGRESS NOTE (QUA) ---
Progress Notes Subjective Date 08/19/16 Time 0850 Note The patient is stable, but her blood pressure has again creeps up. Is now 157/ 88. There is no clonus. Her deep tendon reflexes are normal. She is complaining of a headache. She has now informed us that she (in February 2016 during her ) had a Holter monitor study and an echocardiogram which showed a "" hole in her heart"--review of that study shows a patent foramen ovale. I've asked Dr. Patiño to see the patient. He is going to place her on a telemetry bed and do an echo cardiogram with a bubble study. She will remain in-house for now. Assessment/Plan Problem List 1. Hypertension, condition or complication This inpt stay is expected to cross 2 MNs from start of care Yes at 0885
--- NOTE | 2016-08-19 09:00 | CONSULT NOTE ---
Standard Demographics Patient Demo Date of Consultation: 08/19/16 Referring Provider: Nino Dewey MD Reason for Consultation: hypertension/PFO PRIMARY DIAGNOSIS: OBS FOR PIH Allergies: Coded Allergies: No Known Allergies (08/17/16) History of present illness: History of present illness: 26-year-old white female, recently delivered a healthy , who in the summer of 2015 at 14 weeks of gestation was diagnosed with PFO on cardiac echocardiogram during workup for palpitations in my office. She was referred to [facility] cardiology, Dr. Clifford Vega, who recommended no intervention as he felt the PFO was hemodynamically insignificant and she had no issues with headaches, other issues from this defect. She had a uneventful , and delivered as noted in the obstetrics notes. However, her condition was complicated by hypertension. She was brought back to the obstetrics service and 2 days ago underwent D and E because of retained placental products and this seemed to improve her blood pressure. She was watched overnight yesterday, but this morning her blood pressure remains in the 140 range and I was asked to consult on her management in light of her cardiac conditions. The patient this morning feels tired but otherwise has no cardiac complaints, has no headache, shortness of air, sensation of palpitations, swelling, chest pain or dyspnea with exertion, paroxysmal nocturnal dyspnea or positional dyspnea. Past medical history: Family HX Diabetes No CAD No Hypertension No Hyperlipidemia No Cancer No TB No Immunization HX DT/Tetanus > 10 Years Ago Flu 2015-FSN Pneumonia Refuses TB Test in last year No General CAD? No Angina: No SD: No Hypertension? No Hyperlipidemia? No CHF? No DVT? No PE? No COPD? No Asthma? No Anemia? No GERD? No Gastric ulcers? No GI Bleed? No Hernia? No Thyroid Problems? No Hypothyroidism? No CVA? No Seizures? No Diabetes? No Renal Insuffiency? No UTI? No Stones? No BPH? No GB Disease: No Nephritic Syndrome? No Asplenia? No Hepatitis? No Sickle Cell Disease? No Arthritis? No Migraines? No Cataracts? No Glaucoma? No MRSA? No HIV? No TB? No Anxiety? No Depression? No Cancer? No More? No Past Surgical HX Previous Surgery?N Current home meds: Active Scripts Ibuprofen (MOTRIN 400MG) 400 MG PO Q8HP PRN MILD PAIN, FEVER OR HEADACHE #40 TAB Prov: 08/09/16 Oxycodone 5MG/[id number] (Oxycodone-Acetaminophen 5-325) 1-2 TAB PO Q4HP PRN MODERATE TO SEVERE PAIN #30 TAB Prov: 08/09/16 LABETALOL HCL (Labetalol HCl) 200 MG PO BID #60 TAB Ref 1 Prov: 08/12/16 Reported Medications Ranitidine Hcl (Ranitidine 150MG) 150 MG PO BID Social Hx: Pt is a non-smoker Patient uses alcohol never Patien't marital status is Patient's support system is good Pt uses illicit drugs? No Standard Review of Systems General malaise, weakness. Respiratory No: no symptoms reported. Cardiovascular see HPI Genitourinary see HPI. Exam: Admission vital signs: 1ST Vital Signs Result Date Time B/P 158/113 08/14 1615 Pulse 66 08/14 1615 Pulse Ox 100 08/14 1620 O2 Delivery ROOM AIR 08/14 1620 Temp 98.3 08/14 1620 Resp 18 08/14 1620 O2 Flow Rate 12 08/17 1010 Additional information: Patient is alert, pleasant, no JVD. No thyromegaly. No edema or clubbing in her hands, she has minimal ankle edema, fairly typical for status. Abdominal exam deferred to PRINCIPAL ELECTRICAL ENGINEER. Heart rate regular without murmurs. No gallops. No ectopic beats. Lungs are clear. No carotid bruit. Plan: Problem List 1. Hypertension, condition or complication 2. Patent foramen ovale Plan: Plan will be to transfer to nuclear monitoring technician overnight, I would recommend continuing labetalol and nifedipine at this point. She is already on DVT prophylaxis. We will repeat echocardiogram with bubble study tomorrow, electrocardiogram today and tomorrow. Labs tomorrow morning including thyroid studies and urinalysis. at 0900
--- NOTE | 2016-08-19 09:00 | CONSULT NOTE ---
Standard Demographics Patient Demo Date of Consultation: 08/19/16 Referring Provider: Nino Dewey MD Reason for Consultation: hypertension/PFO PRIMARY DIAGNOSIS: OBS FOR PIH Allergies: Coded Allergies: No Known Allergies (08/17/16) History of present illness: History of present illness: 26-year-old white female, recently delivered a healthy , who in the summer of 2015 at 14 weeks of gestation was diagnosed with PFO on cardiac echocardiogram during workup for palpitations in my office. She was referred to [facility] cardiology, Dr. Clifford Vega, who recommended no intervention as he felt the PFO was hemodynamically insignificant and she had no issues with headaches, other issues from this defect. She had a uneventful , and delivered as noted in the obstetrics notes. However, her condition was complicated by hypertension. She was brought back to the obstetrics service and 2 days ago underwent D and E because of retained placental products and this seemed to improve her blood pressure. She was watched overnight yesterday, but this morning her blood pressure remains in the 140 range and I was asked to consult on her management in light of her cardiac conditions. The patient this morning feels tired but otherwise has no cardiac complaints, has no headache, shortness of air, sensation of palpitations, swelling, chest pain or dyspnea with exertion, paroxysmal nocturnal dyspnea or positional dyspnea. Past medical history: Family HX Diabetes No CAD No Hypertension No Hyperlipidemia No Cancer No TB No Immunization HX DT/Tetanus > 10 Years Ago Flu 2015-FSN Pneumonia Refuses TB Test in last year No General CAD? No Angina: No SD: No Hypertension? No Hyperlipidemia? No CHF? No DVT? No PE? No COPD? No Asthma? No Anemia? No GERD? No Gastric ulcers? No GI Bleed? No Hernia? No Thyroid Problems? No Hypothyroidism? No CVA? No Seizures? No Diabetes? No Renal Insuffiency? No UTI? No Stones? No BPH? No GB Disease: No Nephritic Syndrome? No Asplenia? No Hepatitis? No Sickle Cell Disease? No Arthritis? No Migraines? No Cataracts? No Glaucoma? No MRSA? No HIV? No TB? No Anxiety? No Depression? No Cancer? No More? No Past Surgical HX Previous Surgery?N Current home meds: Active Scripts Ibuprofen (MOTRIN 400MG) 400 MG PO Q8HP PRN MILD PAIN, FEVER OR HEADACHE #40 TAB Prov: 08/09/16 Oxycodone 5MG/[id number] (Oxycodone-Acetaminophen 5-325) 1-2 TAB PO Q4HP PRN MODERATE TO SEVERE PAIN #30 TAB Prov: 08/09/16 LABETALOL HCL (Labetalol HCl) 200 MG PO BID #60 TAB Ref 1 Prov: 08/12/16 Reported Medications Ranitidine Hcl (Ranitidine 150MG) 150 MG PO BID Social Hx: Pt is a non-smoker Patient uses alcohol never Patien't marital status is Patient's support system is good Pt uses illicit drugs? No Standard Review of Systems General malaise, weakness. Respiratory No: no symptoms reported. Cardiovascular see HPI Genitourinary see HPI. Exam: Admission vital signs: 1ST Vital Signs Result Date Time B/P 158/113 08/14 1615 Pulse 66 08/14 1615 Pulse Ox 100 08/14 1620 O2 Delivery ROOM AIR 08/14 1620 Temp 98.3 08/14 1620 Resp 18 08/14 1620 O2 Flow Rate 12 08/17 1010 Additional information: Patient is alert, pleasant, no JVD. No thyromegaly. No edema or clubbing in her hands, she has minimal ankle edema, fairly typical for status. Abdominal exam deferred to [employer]. Heart rate regular without murmurs. No gallops. No ectopic beats. Lungs are clear. No carotid bruit. Plan: Problem List 1. Hypertension, condition or complication 2. Patent foramen ovale Plan: Plan will be to transfer to secured entrance monitor overnight, I would recommend continuing labetalol and nifedipine at this point. She is already on DVT prophylaxis. We will repeat echocardiogram with bubble study tomorrow, electrocardiogram today and tomorrow. Labs tomorrow morning including thyroid studies and urinalysis. at 0900
--- NOTE | 2016-08-19 18:25 | RADIOLOGY REPORT PS360 ---
CHEST(2 VIEWS-NOT PORTABLE) COMPARISON: PA and lateral chest 01/22/2008 HISTORY: Cough, hypertension TECHNIQUE: PA and lateral chest FINDINGS: The lung nagel are well expanded healing slightly accentuated bronchovascular markings and hazy opacity in the right perihilar region extending into the right middle lobe. The right upper lung field and left lung field are grossly clear. There has been interval definite increase in overall cardiac size from the previous study with mild to moderate generalized cardio megaly noted at this time. The pulmonary vascularity appears normal and is no pleural fluid. IMPRESSION: 1. Probable minimal right middle lobe pneumonic infiltrate 2. Mild to moderate generalized cardio megaly
[2016-08-20] VITALS (11 sets, daily range): BP systolic 127–169; BP diastolic 82–109
--- NOTE | 2016-08-20 06:16 | ACUTE CARE PROGRESS NOTE (QUA) ---
Progress Notes Subjective Date 08/20/16 Time 0615 Note Blood pressure 156/92. Dr. Patiño has ordered an echocardiogram and several labs today. DTRs are normal. Plan: Observe. Assessment/Plan Problem List 1. Hypertension, condition or complication 2. Patent foramen ovale This inpt stay is expected to cross 2 MNs from start of care Yes at 0616
[2016-08-20 07:19] LABS: HEMOGLOBIN 11.5 g/dL (12.2-16.2)
[2016-08-20 07:20] LABS: LYMPH # 2.5 K/mm3 (0.7-4.5); LYMPH % 27.3 % (10-50.0)
[2016-08-20 07:27] LABS: FREE THYROXIN INDEX 8.3 ug/dl (5.93-13.13)
--- NOTE | 2016-08-20 08:45 | ACUTE CARE PROGRESS NOTE (QUA) ---
Progress Notes Subjective Date 08/20/16 Time 0843 Note Internal medicine followup consult note. Patient is sleeping, very comfortably, no complaints of pain, shortness of air palpitations. Blood pressure readings reviewed. P.r.n. clonidine yesterday did a good job lowering her systolic pressure. Exam shows regular heart rate, clear lungs, no edema. Objective Findings Last VS-Temp:99.4 B/P:149/87 Pulse:68 Resp:18 SaO2:98 ROOM AIR Last weight lbs:157 oz:8 K.441 Method:Floor Scales Assessment/Plan Problem List 1. Hypertension, condition or complication 2. Patent foramen ovale Patient condition Improving Plan: continue current care, bump up Nifedipine dosing to 60 mg daily. Echocardiogram with bubble study today. This inpt stay is expected to cross 2 MNs from start of care Yes at 0844
--- NOTE | 2016-08-20 11:44 | ACUTE CARE PROGRESS NOTE (QUA) ---
Progress Notes Subjective Date 08/20/16 Time 1143 Note The patient is afebrile. Her vital signs are stable, but her blood pressure still fluctuates from the 150s to 160s over high 80s to 90s. Deep tendon reflexes are slightly brisk. She had an echocardiogram this morning. I feel as though she should be evaluated for another day. I've discussed this with Dr. Patiño. Assessment/Plan Problem List 1. Hypertension, condition or complication 2. Patent foramen ovale This inpt stay is expected to cross 2 MNs from start of care Yes at 1141
[2016-08-20 15:14] LABS: URINE BILIRUBIN - DIPSTICK NEGATIVE (NEG); URINE BLOOD 2+ (NEG)
[2016-08-21] VITALS (11 sets, daily range): BP systolic 114–175; BP diastolic 70–110
--- NOTE | 2016-08-21 07:56 | ACUTE CARE PROGRESS NOTE (QUA) ---
Progress Notes Subjective Date 08/21/16 Time 0754 Note She continues to have elevated blood pressure. Her blood pressures are still in the 150-160/90 range. She is feeling a little better. She denies any edema. She denies any headache. She is sleeping this morning. Patient/family reports: no complaints Objective Findings Last VS-Temp:98.9 B/P:142/97 Pulse:70 Resp:18 SaO2:96 ROOM AIR Last weight lbs:157 oz:8 K.441 Method:Floor Scales Exam General appearance: normal appearance, no acute distress Reviewed: vital signs, lab results, radiology report Assessment/Plan Problem List 1. Hypertension, condition or complication 2. Patent foramen ovale Patient condition Stable Plan: continue current care This inpt stay is expected to cross 2 MNs from start of care Yes Comments: Her blood pressure continues to be elevated. A chest x-ray showed that she had cardiomegaly. I am concerned she may have a possible cardiomyopathy. I will speak with Dr. Banegas this morning. We may have a cardiology consult. at 0756
--- NOTE | 2016-08-21 11:30 | CONSULT NOTE ---
Standard Demographics Patient Demo Date of Consultation: 08/21/16 Referring Provider: Dionte Foley MD Reason for Consultation: hypertension/PFO PRIMARY DIAGNOSIS: OBS FOR PIH Problem list Problem list: 1. History of reflux 2. Hypertension post-, 08/2016 with previous uneventful 3. Patent PFO, Echo, , 2016, no recommendations for closure. A. Echo, 08/2016, Normal LVEF without evidence of PFO. 4. Tobacco use, 0.5 ppd. History of present illness: History of present illness: 26-year-old white female, recently delivered a healthy infant, who in the summer of 2015 at 14 weeks of gestation was diagnosed with PFO on cardiac echocardiogram during workup for palpitations in my office. She was referred to [facility] cardiology, Dr. Clifford Vega, who recommended no intervention as he felt the PFO was hemodynamically insignificant and she had no issues with headaches, other issues from this defect. She had a uneventful , and delivered as noted in the obstetrics notes. However, her condition was complicated by hypertension. She was brought back to the obstetrics service and 2 days ago underwent D and E because of retained placental products and this seemed to improve her blood pressure. She was watched overnight yesterday, but this morning her blood pressure remains in the 140 range and I was asked to consult on her management in light of her cardiac conditions. The patient this morning feels tired but otherwise has no cardiac complaints, has no headache, shortness of air, sensation of palpitations, swelling, chest pain or dyspnea with exertion, paroxysmal nocturnal dyspnea or positional dyspnea. The above per Dr. Patiño. Cardiology consulted for evaluation and recommendations for hypertension. Pt denies any chest pain, pressure or tightness. She has had a headache with elevated BP this admission. Previous uncomplicated. She drinks several mountain dews per day. Denies eating a lot of salt or fast food. Past Medical History: General: Hypertension No CVA No Seizures No TB No COPD No Asthma No Diabetes No Angina No MN No Hyperlipidemia No Urinary No Cancer No Rheumatic H.D. No Ulcers No MRSA No GB Disease No Past Surgical HX: Previous Surgery?N Allergies Coded Allergies: No Known Allergies (08/17/16) Home medications: Active Scripts Ibuprofen (MOTRIN 400MG) 400 MG PO Q8HP PRN MILD PAIN, FEVER OR HEADACHE #40 TAB Prov: 08/09/16 Oxycodone 5MG/[id number] (Oxycodone-Acetaminophen 5-325) 1-2 TAB PO Q4HP PRN MODERATE TO SEVERE PAIN #30 TAB Prov: 08/09/16 LABETALOL HCL (Labetalol HCl) 200 MG PO BID #60 TAB Ref 1 Prov: 08/12/16 Reported Medications Ranitidine Hcl (Ranitidine 150MG) 150 MG PO BID Current Medications: Current Medications Labetalol HCl 400 MG Q8H PO Oxycodone/Acetaminophen 0 .STK-MED ONE PO (DC) Labetalol HCl 400 MG TID PO (DC) Oxycodone/Acetaminophen 0 .STK-MED ONE PO (DC) Oxycodone/Acetaminophen 0 .STK-MED ONE PO (DC) Labetalol HCl 0 .STK-MED ONE .ROUTE (DC) Oxycodone/Acetaminophen 0 .STK-MED ONE PO (DC) Nifedipine 60 MG DAILY PO Clonidine HCl 0.1 MG Q8HP PRN PO Labetalol HCl 200 MG TID PO (DC) Fluticasone Propionate 1 PUFFS BID IH Lactated Ringer's 1,000 ML .Q20H IV Guaifenesin 10 ML Q6HP PRN PO Oxycodone/Acetaminophen 1 EACH Q4HP PRN PO Oxycodone/Acetaminophen 2 EACH Q4HP PRN PO Immunization HX DT/Tetanus > 10 Years Flu 2015-FSN Pneumonia Refuses TB Test in last year No Family history Family HX Family Hx Insignificant No Diabetes No CAD No Hypertension No Hyperlipidemia No Cancer No TB No Social Hx: Smoking HX Tobacco Yes Type Cigarettes Packs/day < 1 PACK Are you/the child exposed to second-hand smoke: Yes Alcohol Alcohol: No Hx of Drug Use Drug Use? No Review of systems: Constitutional No: no symptoms reported. Respiratory No: no symptoms reported. Cardiovascular No no symptoms reported Gastrointestinal/Abdominal No no symptoms reported Genitourinary No: no symptoms reported. Musculoskeletal No: no symptoms reported. Neurological Yes: see HPI, headache. Exam: Admission Vital Signs: 1ST Vital Signs Result Date Time B/P 158/113 08/14 1615 Pulse 66 08/14 1615 Pulse Ox 100 08/14 1620 O2 Delivery ROOM AIR 08/14 1620 Temp 98.3 08/14 1620 Resp 18 08/14 1620 O2 Flow Rate 08/17 1010 Last Vital Signs: Vital Signs Result Date Time B/P 130/90 08/21 1100 Pulse 88 08/21 1100 Resp 16 08/21 1008 Pulse Ox 99 08/21 0830 O2 Delivery ROOM AIR 08/21 0830 Temp 97.9 08/21 0830 O2 Flow Rate 08/17 1119 Exam General appearance: alert, awake, no acute distress Neck: no carotid bruit, no JVD Cardiovascular: regular rate & rhythm, no murmur Respiratory: clear to auscultation, good air movement Extremities: moves all, no peripheral edema Neuro: alert, intact, oriented, speech clear Laboratory data: Laboratory Tests 08/20/16 1450: Urine Color YELLOW, Urine Appearance CLEAR, Urine pH 7.0, Ur Specific [place] 1.010, Urine Protein TRACE H, Urine Ketones NEGATIVE, Urine Blood 2+ H, Urine Nitrate NEGATIVE, Urine Bilirubin NEGATIVE, Urine Urobilinogen 1.0, Ur Leukocyte Esterase 1+ H, Urine RBC 5-10, Urine WBC 5-10, Ur Squamous Epith Cells 10-20, Urine Bacteria 1+, Urine Glucose NEGATIVE 08/20/16 0620: TSH 1.55, Free T4 Index 8.3, Thyroxine (T4) 9.0, T3 Uptake 37 08/20/16 0620: Sodium 139, Potassium 3.5, Chloride 103, Carbon Dioxide 27, BUN 8, Creatinine 0.7, Estimated Creat Clear 140, Estimated GFR (MDRD) 103, Glucose 91, Calcium 9.0, Total Bilirubin 0.4, AST 19, ALT 20, Alkaline Phosphatase 142 H, Total Protein 7.0, Albumin 3.0 L, Globulin 4.0 H, Albumin/Globulin Ratio 0.8 L, WBC 9.3, RBC 3.76 L, Hgb 11.5 L, Hct 34.6 L, MCV 91.9, RDW 13.8, Plt Count 449 H , Gran % 67.6, Gran # 6.3, Lymphocytes % 27.3, Monocytes % 5.1, Lymphocytes # 2.5, Monocytes # 0.5, PUBS MCHC 33.2, MCH 30.6 Microbiology Date/Time Procedure - Status Source Growth 08/20 1450 Urine Culture - RES RANDOM Plan: Assessment: 1. HTN. Pt does not plan to breastfeed. Discussed with Dr. Bueno. Will stop labetolol and clonidine and use coreg and lasix. Check chem 7 in AM. 2. Tobacco use, cessation encouraged 3. History of PFO, summer 2015, with no evidence on Echo 08/2016. Recommendations: See above. at 173
[2016-08-22] VITALS (7 sets, daily range): BP systolic 111–147; BP diastolic 66–99
--- NOTE | 2016-08-22 07:06 | ACUTE CARE PROGRESS NOTE (QUA) ---
Progress Notes Subjective Date 08/22/16 Time 0703 Note 26 yo WF in NAD. Feeling better and ready to go home. Objective Findings Last VS-Temp:98.0 B/P:111/66 Pulse:63 Resp:18 SaO2:99 ROOM AIR Last weight lbs:149 oz:0 K.585 Method:Floor Scales Exam General appearance: alert, awake, no acute distress Cardiovascular: regular rate & rhythm Respiratory: clear to auscultation Reviewed: medications, vital signs, lab results Assessment/Plan Problem List 1. Hypertension, condition or complication Assessment/Plan: BP improved on coreg and lasix. Would stop nifedipine. OK to discharge home from cardiology standpoint. OK to reduce coreg to 6.25 mg BID if systolic BP <100 mm Hg. Recommend checking BMP next week due to lasix. She may only need lasix for a few days. Follow up in one week with us or Dr. Patiño. 2. Patent foramen ovale Assessment/Plan: PFO noted on echo 01/2016. NOT seen on echo this admission. Continue to treat conservatively. Consider repeat echo in 3-6 months. Patient condition Improving Plan: As above. This inpt stay is expected to cross 2 MNs from start of care Yes at 0706
--- NOTE | 2016-08-22 08:43 | ACUTE CARE PROGRESS NOTE (QUA) ---
Progress Notes Subjective Date 08/22/16 Time 0841 Note She continues to do very well. Her blood pressure has now normalized. She feels much better. Patient/family reports: feeling better, no complaints Objective Findings Last VS-Temp:98.0 B/P:111/66 Pulse:63 Resp:18 SaO2:99 ROOM AIR Last weight lbs:149 oz:0 K.585 Method:Floor Scales Exam General appearance: normal appearance, alert, awake, no acute distress Reviewed: vital signs, lab results Assessment/Plan Problem List 1. Hypertension, condition or complication 2. Patent foramen ovale Patient condition Improving, Stable Plan: continue current care, initiate discharge plan This inpt stay is expected to cross 2 MNs from start of care Yes Comments: She seems to be doing very well. She'll her blood pressure has now normalized on the core regular and Lasix. We have discontinued her nifedipine and labetalol. We will plan to send her home today. We will continue with Coreg 12.5 mg twice a day and Lasix 40 mg daily. I will add potassium 20 mEq twice a day and she also has a urinary tract infection. We will start Macrobid 100 mg twice a day as well. I will see her back in my office in 48 hours. at 0842
--- NOTE | 2016-08-22 08:52 | Discharge Summary ---
Discharge Summary Admission date: 08/14/16 Discharge date: 08/22/16 Discharge diagnoses: -induced hypertension, possible retained products, urinary tract infection Clinical note: She is a 26-year-old 2 now para 2 who was about a week . She delivered vaginally on August 07, 2016. Shortly after her delivery her blood pressure was elevated and she was admitted for magnesium sulfate. She received this for 24 hours and was started on labetalol 200 mg 3 times a day. Her blood pressure was stabilized and she was discharged home. She was then seen in my office a couple days later and her blood pressure continues to be elevated. As result of the elevated blood pressure we elected to readmit her for blood pressure control. Course in hospital: She was admitted and started on IV using sulfate for 12 hours. She was continued on her labetalol and seen to be doing well on this. She subsequently continued to have elevated blood pressure and I spoke with Dr. Coats at [facility] and he suggested we look for retained products. She had an ultrasound that was suspicious for a small amount of retained placenta. The ultrasound said that the retained products for about 3 x 2 cm in size. Since I was leaving [facility] [address] for the weekend, Dr. Dewey performed a D and C. He said he retrieved a moderate amount of necrotic tissue. Despite this she continued to have elevated blood pressures. We started her on nifedipine 30 mg daily and this was increased to 60 mg XL daily. Her labetalol was increased to 400 mg 3 times a day. She is had a previous echo for a patent [place] but since it was quite small they elected not to close this. She had a repeat echo while hospitalized and they did not see the [place] ovale at this time. The rest of the echo was completely normal. She was seen in consultation by Dr. Patiño as well as our car customizer Dr. Bueno. The car customizer changed her blood pressure medicine to Coreg 12.5 mg twice a day and Lasix 40 mg daily. This seems to help with her blood pressure now. Her blood pressure this morning was 111/66. She denies any headache, scotomata or epigastric pain. Her laboratory investigations were normal. Laboratory Tests 08/22/16 0655: Sodium 139, Potassium 3.3 L, Chloride 103, Carbon Dioxide 26, BUN 16, Creatinine 1.0, Estimated Creat Clear 93, Estimated GFR (MDRD) 68, Glucose 116 H, Calcium 8.4 L 08/20/16 1450: Urine Color YELLOW, Urine Appearance CLEAR, Urine pH 7.0, Ur Specific [place] 1.010, Urine Protein TRACE H, Urine Ketones NEGATIVE, Urine Blood 2+ H, Urine Nitrate NEGATIVE, Urine Bilirubin NEGATIVE, Urine Urobilinogen 1.0, Ur Leukocyte Esterase 1+ H, Urine RBC 5-10, Urine WBC 5-10, Ur Squamous Epith Cells 10-20, Urine Bacteria 1+, Urine Glucose NEGATIVE 08/20/16 0620: TSH 1.55, Free T4 Index 8.3, Thyroxine (T4) 9.0, T3 Uptake 37 08/20/16 0620: Sodium 139, Potassium 3.5, Chloride 103, Carbon Dioxide 27, BUN 8, Creatinine 0.7, Estimated Creat Clear 140, Estimated GFR (MDRD) 103, Glucose 91, Calcium 9.0, Total Bilirubin 0.4, AST 19, ALT 20, Alkaline Phosphatase 142 H, Total Protein 7.0, Albumin 3.0 L, Globulin 4.0 H, Albumin/Globulin Ratio 0.8 L, WBC 9.3, RBC 3.76 L, Hgb 11.5 L, Hct 34.6 L, MCV 91.9, RDW 13.8, Plt Count 449 H , Gran % 67.6, Gran # 6.3, Lymphocytes % 27.3, Monocytes % 5.1, Lymphocytes # 2.5, Monocytes # 0.5, PUBS MCHC 33.2, MCH 30.6 Microbiology Date/Time Procedure - Status Source Growth 08/20 1449 Urine Culture - COMP RANDOM ESCHERICHIA COLI Plans for ongoing care: She is discharged home to follow-up with me in approximately 2 days' time. Discharge medications She will continue with her Coreg 12.5 mg twice a day as well as Lasix 40 mg daily. I've given her prescription for Macrobid 100 mg twice a day to take for the next 5 days. I have given her a prescription for potassium as well. DC/follow-up instructions She will continue with bed rest and pelvic rest. Condition at discharge Stable and improved at 0835
[2016-08-22] MEDS ORDERED: CARVEDILOL 1212.5 MG PO (08:54)
[2016-08-22] MEDS ORDERED: FUROSEMIDE40 MG PO (08:54)
[2016-08-22] MEDS ORDERED: POTASSIUM CHLO20 ME1 PO (08:56)
[2016-08-22] MEDS ORDERED: MACROBID100 M3 PO (10:17)
== END 2016-08-22 10:50 | disposition home or self-care (01) | DRG 769 ==
LOC: OB 15:36
PROVIDERS: Internal Medicine; Internal Medicine Adolescent Medicine; Nurse Practitioner Obstetrics & Gynecology; Obstetrics & Gynecology
PROC: 10D17ZZ Extraction of Products of Conception, Retained, Via Natural or Artificial Opening (ICD-10-PCS; principal; 2016-08-17 13:00)
DX: O13.5 Gestational [pregnancy-induced] hypertension without significant proteinuria, complicating the puerperium (principal); O86.20 Urinary tract infection following delivery, unspecified; O73.0 Retained placenta without hemorrhage; B96.20 Unspecified Escherichia coli [E. coli] as the cause of diseases classified elsewhere
CPT/HCPCS: J0131; J2405

== ENCOUNTER → 2017-07-03 | Outpatient (CLI) | payer OTHER, MEDICAID ==
[~2017-07-03] MED LIST changes: +CARVEDILOL 1212.5 MG PO; +FUROSEMIDE40 MG PO; +MACROBID100 M3 PO; +POTASSIUM CHLO20 ME1 PO
--- NOTE | 2017-07-04 07:31 | RADIOLOGY REPORT PS360 ---
MRI-BRAIN W/O HISTORY: HEMIPLEGIC MIGRAINE WITHOUT STATUS MIGRAINOSUS ORDERING PHYSICIAN: Ashwin Patiño MD PATIENT AGE: 26 years COMPARISON: None TECHNIQUE: Standard multiplanar multiecho sequences are performed without contrast. FINDINGS: No midline shift, mass effect, intracranial hemorrhage, or hydrocephalus is evident. There is no evidence of acute infarction or abnormal restricted diffusion. The cerebellopontine angles, cerebellum, and brainstem are unremarkable. There is normal phelps-white matter differentiation with no abnormal white matter signal intensity apparent. The hippocampal gyri are unremarkable in the temporal horns are symmetric. The pituitary, optic chiasm, and corpus callosum are unremarkable. No cerebellar tonsillar ectopia. The upper cervical cord has an unremarkable appearance. There is some mild mucosal thickening of the ethmoid sinuses. No mastoid effusion or sinus air-fluid level. No large aneurysms. IMPRESSION: Negative MRI of the brain without contrast
== END ==
LOC: RAD 13:37
DX: G43.409 Hemiplegic migraine, not intractable, without status migrainosus (principal)